=== PATIENT | male | born 1940 | race Caucasian/White ===

== ENCOUNTER 2018-07-04 08:07 | Emergency (ER) | payer MEDICARE, BC ==
[~2018-07-04] VITALS: Ht 172.7 cm; Wt 92.0 kg
[~2018-07-04 08:07] MED LIST: ALBU18HF2 INH; CETI10TA15 PO; FLUT16SP2 BOTHNARES; GUAI600T45 PO; PSEU-259 PO
[2018-07-04 08:14] VITALS: BP 126/79
[2018-07-04] MEDS ORDERED: triamcinolone acetonide 40mg/ml inj IM ONE (08:55)
[2018-07-04] MEDS ORDERED: dexamethasone 4mg tablet PO ONE (08:55)
== END 2018-07-04 09:18 | disposition home or self-care (01) ==
LOC: ER 08:07
DX: R21 Rash and other nonspecific skin eruption (principal); E78.00 Pure hypercholesterolemia, unspecified; I10 Essential (primary) hypertension; G89.29 Other chronic pain; Z98.890 Other specified postprocedural states; Z88.1 Allergy status to other antibiotic agents; Z88.8 Allergy status to other drugs, medicaments and biological substances; Z79.899 Other long term (current) drug therapy
CPT/HCPCS: 96372; 99283; J3301; J8540

== ENCOUNTER 2019-05-14 01:18 | Emergency (ER) | payer MEDICARE, BC ==
[~2019-05-14] VITALS: Ht 175.3 cm; Wt 90.0 kg
[2019-05-14] MEDS ORDERED: PRED20TA PO (01:32)
[2019-05-14] MEDS ORDERED: dexamethasone 4mg tablet PO ONE (01:40)
[2019-05-14] MEDS ORDERED: famotidine 10mg tablet PO ONE (01:40)
[2019-05-14] MEDS ORDERED: famotidine 20mg tablet PO ONE (01:45)
[2019-05-14 01:57] VITALS: BP 154/86
== END 2019-05-14 01:40 | disposition home or self-care (01) ==
LOC: ER 01:19
DX: T78.40XA Allergy, unspecified, initial encounter (principal); R06.02 Shortness of breath; E78.00 Pure hypercholesterolemia, unspecified; I10 Essential (primary) hypertension; E11.9 Type 2 diabetes mellitus without complications; G89.29 Other chronic pain; Z98.890 Other specified postprocedural states; Z88.1 Allergy status to other antibiotic agents; Z79.899 Other long term (current) drug therapy; X58.XXXA Exposure to other specified factors, initial encounter; Y93.89 Activity, other specified; Y92.89 Other specified places as the place of occurrence of the external cause; Y99.8 Other external cause status
CPT/HCPCS: 99283

== ENCOUNTER → 2021-11-29 | Day surgery (SDC) | payer MEDICARE, BC ==
[2021-11-24 08:29] LABS: BASOPHILS # (AUTO) 0.1 X10'3 (0-0.2); BASOPHILS % (AUTO) 1.1 % (0-1); EOSINOPHILS # (AUTO) 0.7 X10'3 (0-0.9); HEMATOCRIT 37.6 % (42.0-52.0); HEMOGLOBIN 12.8 g/dl (14.0-17.9); LYMPHOCYTES # (AUTO) 1.2 X10'3 (1.1-4.8); LYMPHOCYTES % (AUTO) 16.5 % (21-51); MEAN CORPUSCULAR HEMOGLOBIN 33.7 PG (27.0-31.0); MEAN CORPUSCULAR VOLUME 99.1 FL (78-98); MEAN PLATELET VOLUME 7.7 FL (7.4-10.4); MONOCYTES # (AUTO) 0.7 X10'3 (0-0.9); NEUTROPHILS # (AUTO) 4.5 X10'3 (1.8-7.7); NEUTROPHILS % (AUTO) 62.4 % (42-75); PLATELET COUNT 269 X10'3 (140-440); WHITE BLOOD COUNT 7.1 X10'3 (4.5-11.0)
[2021-11-24 08:35] LABS: APTT 26 SECONDS (22-32)
[2021-11-24 08:40] LABS: ALBUMIN 3.3 G/DL (3.4-5.0); ANION GAP 8 (8-16); BLOOD UREA NITROGEN 28 MG/DL (7-18); BUN/CREATININE RATIO 13.4 (5.4-32.0); CHLORIDE 110 MMOL/L (99-107); CHOL/HDL RATIO 2.7 (0.00-4.99); CHOLESTEROL 133 MG/DL (0-200); CREATININE 2.09 MG/DL (0.60-1.10); GLUCOSE 116 MG/DL (70-104); HDL CHOLESTEROL 49 MG/DL (35-60); LDL CHOLESTEROL 66 MG/DL (50-100); SODIUM 144 MMOL/L (135-145); TOTAL CARBON DIOXIDE 26.5 MMOL/L (24-32); TRIGLYCERIDES 27 MG/DL (20-135); eGFR 30 ML/MIN
[~2021-11-29] VITALS: Ht 170.2 cm; Wt 86.1 kg
[2021-11-29] VITALS (9 sets, daily range): BP systolic 124–173; BP diastolic 60–84
[~2021-11-29] MED LIST changes: +ASPI-611 PO; +AZEL137S4 BOTHNARES; +FURO20TA4 PO; +HYDROcodone/acetaminophen 10/325mg tab PO PRN; +HYDROcodone/acetaminophen 5mg/325mg tablet PO PRN; +LIDOcaine 1% 30ml preserv. free vial ONE; +LORazepam 0.5 MG tablet PO PRN; +MONT-40 PO; +SIMV-42 PO; +diphenhydrAMINE 25mg capsule PO PRN; +fentaNYL/PF 50MCG/1 ML 2ML syringe ONE; +heparin 1,000unit/ml 10ml vial 10 ML ONE; +iohexol 350MG/ML 100ml bottle IV ONE; +midazolam 1 mg/ML 2ml injection ONE; +nitroGLYCERIN-Tridil 50MG/D5W 250 ML IV ONE; +normal saline 1,000 ML IV SCH; +normal saline 1000ml 1,000 ML IV SCH; +verapamil 2.5 mg/ml inj IV ONE
--- NOTE | 2021-11-29 19:58 | NUR ---
Assumed care of patient. Procedure site to right wrist stable with vasc band in place. Procedure site to right groin stable with CDI dressing.
[2021-11-30 09:21] LABS: ISTAT Hct MIX 35 %PCV (42-52); ISTAT O2 SATURATION MIX VENOUS 58 % (60-80); ISTAT SOURCE BLNK
[2021-11-30 09:22] LABS: ISTAT Hct MIX 32 %PCV (42-52); ISTAT O2 SATURATION MIX VENOUS 93 % (60-80); ISTAT SOURCE BLNK
== END | disposition home or self-care (01) ==
LOC: SSTAY O 11:59
PROVIDERS: ATTEND Internal Medicine Interventional Cardiology
DX: I08.3 Combined rheumatic disorders of mitral, aortic and tricuspid valves (principal); I27.20 Pulmonary hypertension, unspecified; E11.22 Type 2 diabetes mellitus with diabetic chronic kidney disease; I12.9 Hypertensive chronic kidney disease with stage 1 through stage 4 chronic kidney disease, or unspecified chronic kidney disease; N18.30 Chronic kidney disease, stage 3 unspecified; K21.9 Gastro-esophageal reflux disease without esophagitis; I44.30 Unspecified atrioventricular block; Z79.01 Long term (current) use of anticoagulants; Z79.899 Other long term (current) drug therapy; Z79.82 Long term (current) use of aspirin; Z88.1 Allergy status to other antibiotic agents; Z88.8 Allergy status to other drugs, medicaments and biological substances
CPT/HCPCS: 36415; 80048; 80061; 82803; 85014; 85025; 85610; 85730; 93005; 93456; 99152; 99153; C1751; C1769; C1894; J1644; J2250; J3010; J3490; J7030; Q0163; Q9967; A4620; A5120; A6258; A6402

== ENCOUNTER 2022-02-08 10:01 | Outpatient (CLI) | payer MEDICARE, BC ==
[~2022-02-08 10:01] MED LIST changes: -ALBU18HF2 INH; -CETI10TA15 PO; -FLUT16SP2 BOTHNARES; -HYDROcodone/acetaminophen 10/325mg tab PO PRN; -HYDROcodone/acetaminophen 5mg/325mg tablet PO PRN; -LIDOcaine 1% 30ml preserv. free vial ONE; -LORazepam 0.5 MG tablet PO PRN; -PSEU-259 PO; -diphenhydrAMINE 25mg capsule PO PRN; -fentaNYL/PF 50MCG/1 ML 2ML syringe ONE; -heparin 1,000unit/ml 10ml vial 10 ML ONE; -iohexol 350MG/ML 100ml bottle IV ONE; -midazolam 1 mg/ML 2ml injection ONE; -nitroGLYCERIN-Tridil 50MG/D5W 250 ML IV ONE; -normal saline 1,000 ML IV SCH; -normal saline 1000ml 1,000 ML IV SCH; -verapamil 2.5 mg/ml inj IV ONE
[2022-02-08 11:14] LABS: BASOPHILS % (AUTO) 0.3 % (0-1); EOSINOPHILS % (AUTO) 0.1 % (0-6); HEMATOCRIT 37.6 % (42.0-52.0); HEMOGLOBIN 12.6 g/dl (14.0-17.9); LYMPHOCYTES # (AUTO) 0.7 X10'3 (1.1-4.8); LYMPHOCYTES % (AUTO) 7.4 % (21-51); MEAN CORPUSCULAR HEMOGLOBIN 34.1 PG (27.0-31.0); MEAN CORPUSCULAR HGB CONC 33.4 g/dL (33.0-36.5); MEAN CORPUSCULAR VOLUME 102.2 FL (78-98); MEAN PLATELET VOLUME 7.2 FL (7.4-10.4); MONOCYTES # (AUTO) 0.2 X10'3 (0-0.9); MONOCYTES % (AUTO) 2.5 % (2-12); NEUTROPHILS # (AUTO) 8.7 X10'3 (1.8-7.7); NEUTROPHILS % (AUTO) 89.7 % (42-75); PLATELET COUNT 269 X10'3 (140-440); RED BLOOD COUNT 3.68 X10'6 (4.70-6.10); RED CELL DISTRIBUTION WIDTH 13.9 % (11.5-14.5); WHITE BLOOD COUNT 9.7 X10'3 (4.5-11.0)
[2022-02-08 11:22] LABS: APTT 24 SECONDS (22-32)
[2022-02-08 11:25] LABS: ALANINE AMINOTRANSFERASE 40 U/L (12-78); ALBUMIN 3.6 G/DL (3.4-5.0); ALBUMIN/GLOBULIN RATIO 0.8 (1.1-1.5); ALKALINE PHOSPHATASE 96 IU/L (46-116); ANION GAP 10 (8-16); ASPARTATE AMINO TRANSFERASE 31 U/L (10-37); BILIRUBIN,TOTAL 0.3 MG/DL (0.1-1.0); BLOOD UREA NITROGEN 34 MG/DL (7-18); CALCIUM 8.7 MG/DL (8.5-10.1); CHLORIDE 106 MMOL/L (99-107); CREATININE 2.27 MG/DL (0.60-1.10); GLUCOSE 163 MG/DL (70-104); SODIUM 141 MMOL/L (135-145); TOTAL CARBON DIOXIDE 25.1 MMOL/L (24-32); TOTAL PROTEIN 7.9 G/DL (6.4-8.2); eGFR 28 ML/MIN
[2022-03-09] MEDS ORDERED: APIX2.5T PO (11:12)
[2022-03-09] MEDS ORDERED: GUAI400T92 PO (11:12)
== END 2022-02-08 23:59 | disposition home or self-care (01) ==
LOC: RAD 10:01
PROVIDERS: ATTEND Internal Medicine Cardiovascular Disease
DX: Z01.818 Encounter for other preprocedural examination (principal); I70.0 Atherosclerosis of aorta; R91.8 Other nonspecific abnormal finding of lung field; K76.0 Fatty (change of) liver, not elsewhere classified; N28.1 Cyst of kidney, acquired; K44.9 Diaphragmatic hernia without obstruction or gangrene; K57.30 Diverticulosis of large intestine without perforation or abscess without bleeding; E04.1 Nontoxic single thyroid nodule; N62 Hypertrophy of breast; I25.10 Atherosclerotic heart disease of native coronary artery without angina pectoris; I35.8 Other nonrheumatic aortic valve disorders; J84.10 Pulmonary fibrosis, unspecified; K42.9 Umbilical hernia without obstruction or gangrene; M47.817 Spondylosis without myelopathy or radiculopathy, lumbosacral region; M47.814 Spondylosis without myelopathy or radiculopathy, thoracic region; M46.04 Spinal enthesopathy, thoracic region; I65.29 Occlusion and stenosis of unspecified carotid artery; Z20.822 Contact with and (suspected) exposure to COVID-19; Z87.891 Personal history of nicotine dependence; Z95.0 Presence of cardiac pacemaker; Z79.82 Long term (current) use of aspirin; Z79.899 Other long term (current) drug therapy
CPT/HCPCS: 71046; 71275; 74174; 80053; 85025; 85610; 85730; 87811; 94010; 94727; 94729; J3490; Q9967

== ENCOUNTER 2022-03-16 05:21 | Inpatient (IN) | payer MEDICARE, BC ==
[2022-03-09 12:30] LABS: BASOPHILS # (AUTO) 0.1 X10'3 (0-0.2); BASOPHILS % (AUTO) 0.8 % (0-1); EOSINOPHILS # (AUTO) 0.3 X10'3 (0-0.9); EOSINOPHILS % (AUTO) 4.2 % (0-6); LYMPHOCYTES # (AUTO) 1.5 X10'3 (1.1-4.8); LYMPHOCYTES % (AUTO) 21.6 % (21-51); MEAN CORPUSCULAR HEMOGLOBIN 34.6 PG (27.0-31.0); MEAN CORPUSCULAR HGB CONC 34.2 g/dL (33.0-36.5); MEAN CORPUSCULAR VOLUME 101.1 FL (78-98); MEAN PLATELET VOLUME 7.3 FL (7.4-10.4); MONOCYTES # (AUTO) 0.8 X10'3 (0-0.9); MONOCYTES % (AUTO) 11.6 % (2-12); NEUTROPHILS # (AUTO) 4.2 X10'3 (1.8-7.7); NEUTROPHILS % (AUTO) 61.8 % (42-75); PRE OP HEMOGLOBIN 13.7 g/dL (14.0-17.9); PRE OP PLATELET COUNT 279 X10'3 (140-440); RED BLOOD COUNT 3.96 X10'6 (4.70-6.10); RED CELL DISTRIBUTION WIDTH 13.5 % (11.5-14.5)
[2022-03-09 12:52] LABS: ALBUMIN 3.6 G/DL (3.4-5.0); ALBUMIN/GLOBULIN RATIO 0.9 (1.1-1.5); ALKALINE PHOSPHATASE 96 IU/L (46-116); BLOOD UREA NITROGEN 29 MG/DL (7-18); BUN/CREATININE RATIO 13.9 (5.4-32.0); CHLORIDE 105 MMOL/L (99-107); CREATININE 2.08 MG/DL (0.60-1.10); PRE OP ALT 31 U/L (30-65); PRE OP ANION GAP 9 (8-16); PRE OP AST 29 U/L (10-37); PRE OP BILIRUB, TOTAL 0.3 MG/DL (0.0-1.0); PRE OP GLUCOSE 111 MG/DL (70-104); PRE OP POTASSIUM 3.9 MMOL/L (3.4-5.1); PRE OP SODIUM 142 MMOL/L (135-145); TOTAL CARBON DIOXIDE 28.2 MMOL/L (24-32); TOTAL PROTEIN 7.8 G/DL (6.4-8.2); eGFR 31 ML/MIN
[2022-03-09 12:58] LABS: PRE OP INR 1.1 INR; PRE OP PROTIME 10.9 SECONDS (9.0-12.0)
[~2022-03-16] VITALS: Ht 172.7 cm; Wt 90.9 kg
[2022-03-16] VITALS (20 sets, daily range): BP systolic 129–179; BP diastolic 66–94
[~2022-03-16 05:21] MED LIST changes: +APIX2.5T PO; -ASPI-611 PO; +GUAI400T92 PO; -GUAI600T45 PO; +ringers solution, lacted 1,000 ML IV SCH
[2022-03-16] MEDS ORDERED: aspirin 325mg tablet, delayed-release (Ecotrin) PO ONE (05:30)
[2022-03-16] MEDS ORDERED: nitroPRUSSIDE (NIPRIDE) (200MCG/ML) 100ML Drip IV SCH (05:30)
[2022-03-16] MEDS ORDERED: vancomycin 1,500 MG in NS 300ml IV soln IV ONE (05:30)
[2022-03-16] MEDS ORDERED: phenylephrine inj 50 MG in normal saline 250ml IV solN IV SCH (05:30)
[2022-03-16] MEDS ORDERED: famotidine 20mg tablet PO ONE (05:30)
[2022-03-16] MEDS ORDERED: ondansetron/PF 4mg/2ml inj IV PRN ×3 (05:30→08:15)
[2022-03-16] MEDS ORDERED: ceFAZolin inj. 2,000 MG in dextrose 5%-water 100 ML IV ONE (05:30)
[2022-03-16] MEDS ORDERED: LIDOcaine 1% (10mg/ml) 2ml vial ONE (05:37)
[2022-03-16] MEDS ORDERED: protamine sulfate 10mg/ml inj. ONE (05:50)
[2022-03-16] MEDS ORDERED: diphenhydrAMINE 25mg capsule PO SCH (06:24)
[2022-03-16] MEDS ORDERED: famotidine 20mg tablet PO SCH (06:24)
[2022-03-16] MEDS ORDERED: predniSONE 20 mg tablet PO SCH (06:30)
[2022-03-16] MEDS ORDERED: heparin 1,000 UNITS/NS 500ml 1,500 ML ONE (06:34)
[2022-03-16] MEDS ORDERED: iohexol 350MG/ML 100ml bottle IV ONE (06:34)
[2022-03-16] MEDS ORDERED: LIDOcaine 1%/PF 5ML 10 MG/ML VIAL ONE (06:34)
[2022-03-16] MEDS ORDERED: fentaNYL/PF 50MCG/1 ML 2ML syringe ONE (06:53)
[2022-03-16] MEDS ORDERED: midazolam 1 mg/ML 2ml injection ONE (06:57)
[2022-03-16] MEDS ORDERED: meperidine/PF 25mg/ml syringe IV PRN (07:05)
[2022-03-16] MEDS ORDERED: labetalol 20mg/4ml (5mg/ml) syringe IV PRN ×2 (07:05→08:15)
[2022-03-16] MEDS ORDERED: morphine 2 MG/ML inj. syringe IV PRN (07:05)
[2022-03-16] MEDS ORDERED: hydrALAZINE 20mg/ml inj. IV PRN ×2 (07:05→08:15)
[2022-03-16] MEDS ORDERED: HYDROmorphone/PF 0.2 MG/ML SYRINGE IV PRN ×2 (07:05)
[2022-03-16] MEDS ORDERED: proCHLORperazine 10 MG/2 ml inj IV PRN ×2 (07:05→08:15)
[2022-03-16] MEDS ORDERED: morphine 4 MG/ML inj SYRINge IV PRN (07:05)
[2022-03-16] MEDS ORDERED: acetaminophen 1,000mg/100ml IV 100 ML IV PRN (07:05)
[2022-03-16] MEDS ORDERED: ringers solution, lacted 1,000 ML IV SCH (07:05)
[2022-03-16] MEDS ORDERED: propofol inj 20 ML IV ONE ×3 (07:32)
[2022-03-16] MEDS ORDERED: heparin 1,000unit/ml 10ml vial 10 ML ONE ×2 (07:32→07:46)
[2022-03-16] MEDS ORDERED: azelastine Nasal Spray bottle NS SCH (08:00)
[2022-03-16] MEDS ORDERED: acetaminophen 325mg tablet PO PRN (08:15)
[2022-03-16] MEDS ORDERED: MESSAGE TO PHARMACY PO ONE (08:15)
[2022-03-16] MEDS ORDERED: normal saline 1000ml 1,000 ML IV SCH (08:15)
[2022-03-16] MEDS ORDERED: dextrose 50%-water 50ml dispensing syringe IV PRN ×2 (08:15)
[2022-03-16] MEDS ORDERED: glucagon, human recombinant 1mg kit SUBCUT PRN (08:15)
[2022-03-16] MEDS ORDERED: ALPRAZolam 0.25mg tablet PO PRN (08:15)
[2022-03-16] MEDS ORDERED: docusate sod 100mg capsule PO PRN (08:15)
[2022-03-16] MEDS ORDERED: pantoprazole 40mg Tablet.DR PO PRN (08:15)
[2022-03-16] MEDS ORDERED: insulin Lispro (HumaLOG) vial - multi-dose SQ SCH (08:15)
[2022-03-16] MEDS ORDERED: DEXTROSE 15 GM of carb/4 tabs (each vial/BOTTLE has 4 tablets) PO PRN ×2 (08:15)
[2022-03-16] MEDS ORDERED: diphenhydrAMINE 25mg capsule PO PRN (08:15)
[2022-03-16] MEDS ORDERED: aspirin 81mg tab.chew PO ONE (13:00)
[2022-03-16] MEDS: sod chloride 0.9% 10ml flush syringe IV SCH (16:00)
[2022-03-16] MEDS ORDERED: insulin glargine (Lantus) pen - multi-dose SQ SCH (21:00)
[2022-03-16] MEDS ORDERED: guaiFENesin ER 600mg tablet PO SCH (21:00)
[2022-03-16] MEDS ORDERED: montelukast 10mg tablet PO SCH (21:00)
[2022-03-16] MEDS ORDERED: atorvastatin 10mg tablet PO SCH (21:00)
[2022-03-16] MEDS: vancomycin/NS 1 GM ADD-VANTAGE 250 ML IV SCH (22:13)
[2022-03-17 02:00] VITALS: BP 130/73
[2022-03-17 06:00] VITALS: BP 148/85
[2022-03-17 06:37] LABS: BASOPHILS % (AUTO) 0.1 % (0-1); EOSINOPHILS % (AUTO) 0.1 % (0-6); HEMOGLOBIN 11.6 g/dl (14.0-17.9); LYMPHOCYTES # (AUTO) 1.8 X10'3 (1.1-4.8); MEAN CORPUSCULAR HEMOGLOBIN 34.7 PG (27.0-31.0); MEAN PLATELET VOLUME 7.5 FL (7.4-10.4); MONOCYTES # (AUTO) 1.2 X10'3 (0-0.9); MONOCYTES % (AUTO) 9.5 % (2-12); NEUTROPHILS # (AUTO) 9.5 X10'3 (1.8-7.7); NEUTROPHILS % (AUTO) 76.3 % (42-75); PLATELET COUNT 213 X10'3 (140-440); RED BLOOD COUNT 3.33 X10'6 (4.70-6.10); RED CELL DISTRIBUTION WIDTH 13.5 % (11.5-14.5); WHITE BLOOD COUNT 12.5 X10'3 (4.5-11.0)
[2022-03-17 06:52] LABS: ALANINE AMINOTRANSFERASE 22 U/L (12-78); ALBUMIN/GLOBULIN RATIO 0.9 (1.1-1.5); ALKALINE PHOSPHATASE 78 IU/L (46-116); ANION GAP 6 (8-16); ASPARTATE AMINO TRANSFERASE 19 U/L (10-37); BILIRUBIN,TOTAL 0.4 MG/DL (0.1-1.0); BLOOD UREA NITROGEN 37 MG/DL (7-18); BUN/CREATININE RATIO 17.5 (5.4-32.0); CALCIUM 8.3 MG/DL (8.5-10.1); CHLORIDE 110 MMOL/L (99-107); CREATININE 2.11 MG/DL (0.60-1.10); GLUCOSE 117 MG/DL (70-104); MAGNESIUM 2.6 MG/DL (1.5-2.4); POTASSIUM 4.2 MMOL/L (3.5-5.1); SODIUM 142 MMOL/L (135-145); TOTAL PROTEIN 6.4 G/DL (6.4-8.2); eGFR 30 ML/MIN
[2022-03-17] MEDS: vancomycin/NS 1 GM ADD-VANTAGE 250 ML IV SCH (07:10)
[2022-03-17] MEDS: ceFAZolin 1GM/D5W- ADD-VANTAGE 50 ML IV SCH (08:00)
[2022-03-17] MEDS: sod chloride 0.9% 10ml flush syringe IV SCH ×2 (08:33)
[2022-03-17] MEDS ORDERED: ceFAZolin 1GM/D5W- ADD-VANTAGE 50 ML IV SCH (11:00)
[2022-03-17 12:00] VITALS: BP 142/85
== END 2022-03-17 15:19 | disposition home or self-care (01) | DRG 266 ==
LOC: PAS IN 05:21 → PCU 3S 09:51
PROVIDERS: ADMIT Internal Medicine Cardiovascular Disease; ATTEND Internal Medicine Cardiovascular Disease
PROC: B41D1ZZ Fluoroscopy of Aorta and Bilateral Lower Extremity Arteries using Low Osmolar Contrast (ICD-10-PCS; 2022-03-16)
PROC: 02RF38Z Replacement of Aortic Valve with Zooplastic Tissue, Percutaneous Approach (ICD-10-PCS; principal; 2022-03-16 06:54)
DX: I35.0 Nonrheumatic aortic (valve) stenosis (principal); Z00.6 Encounter for examination for normal comparison and control in clinical research program; I50.33 Acute on chronic diastolic (congestive) heart failure; I13.0 Hypertensive heart and chronic kidney disease with heart failure and stage 1 through stage 4 chronic kidney disease, or unspecified chronic kidney disease; N18.30 Chronic kidney disease, stage 3 unspecified; I48.91 Unspecified atrial fibrillation; Z95.0 Presence of cardiac pacemaker
CPT/HCPCS: 33361; 36415; 71045; 71046; 76937; 80053; 82948; 83036; 83735; 83880; 85025; 85347; 85610; 85730; 86885; 86900; 86901; 86920; 87081; 87811; 93005; 93308; A4618; A6258; A6449; C1756; C1760; C1769; C1894; G0378; J0690; J1644; J1815; J2250; J2370; J2704; J2720; J3010; J3370; J3490; J7040; J7050; J7060; J7120; J7512; Q0163; Q9967

== ENCOUNTER 2023-04-19 09:14 | Emergency (ER) | payer MEDICARE, BC ==
[~2023-04-19] VITALS: Ht 170.2 cm; Wt 79.1 kg
[~2023-04-19 09:14] MED LIST changes: -ringers solution, lacted 1,000 ML IV SCH
[2023-04-19] MEDS ORDERED: acetaminophen 325mg tablet PO ONE ×2 (10:45→12:15)
[2023-04-19] MEDS ORDERED: normal saline 1000ML IV soln IVB ONE (12:15)
[2023-04-19] MEDS ORDERED: ondansetron 4 MG/5 ML oral solution 5ml CUP PO ONE (12:15)
[2023-04-19 12:50] LABS: BASOPHILS % (AUTO) 0.4 % (0-1); EOSINOPHILS % (AUTO) 0.4 % (0-6); HEMATOCRIT 31.2 % (42.0-52.0); HEMOGLOBIN 10.4 g/dl (14.0-17.9); LYMPHOCYTES # (AUTO) 0.5 X10'3 (1.1-4.8); LYMPHOCYTES % (AUTO) 7.4 % (21-51); MEAN CORPUSCULAR HEMOGLOBIN 34.7 PG (27.0-31.0); MEAN CORPUSCULAR HGB CONC 33.4 g/dL (33.0-36.5); MEAN CORPUSCULAR VOLUME 103.7 FL (78-98); MEAN PLATELET VOLUME 7.5 FL (7.4-10.4); MONOCYTES # (AUTO) 0.5 X10'3 (0-0.9); MONOCYTES % (AUTO) 7.4 % (2-12); NEUTROPHILS # (AUTO) 6.1 X10'3 (1.8-7.7); NEUTROPHILS % (AUTO) 84.4 % (42-75); PLATELET COUNT 220 X10'3 (140-440); RED BLOOD COUNT 3.01 X10'6 (4.70-6.10); RED CELL DISTRIBUTION WIDTH 14.3 % (11.5-14.5); WHITE BLOOD COUNT 7.3 X10'3 (4.5-11.0)
[2023-04-19 12:59] VITALS: BP 121/59; PULSE 69; RESP 16; TEMP 98.3; O2SAT 98
[2023-04-19 13:09] LABS: APTT 32 SECONDS (22-32); INR 1.7 INR; PROTHROMBIN TIME 17.8 SECONDS (9.0-12.0)
[2023-04-19 13:39] LABS: BILIRUBIN,URINE NEGATIVE (Neg); CLARITY,URINE CLEAR (Clear); COLOR,URINE YELLOW (Yellow); GLUCOSE, URINE NEGATIVE (Neg); KETONES,URINE NEGATIVE (Neg); LEUKOCYTE ESTERASE ,URINE SMALL (Neg); NITRITES, URINE NEGATIVE (Neg); OCCULT BLOOD,URINE TRACE-INTACT (Neg); PH,URINE 5.5 (4.8-8.0); PROTEIN,URINE NEGATIVE (Neg); UROBILINOGEN,URINE 0.2 E.U/dL (0.2-1.0)
[2023-04-19 13:43] LABS: ALANINE AMINOTRANSFERASE 34 U/L (12-78); ALBUMIN 3.6 G/DL (3.4-5.0); ALBUMIN/GLOBULIN RATIO 0.9 (1.1-1.5); ALKALINE PHOSPHATASE 106 IU/L (46-116); ANION GAP 10 (8-16); ASPARTATE AMINO TRANSFERASE 39 U/L (10-37); BILIRUBIN,TOTAL 0.7 MG/DL (0.1-1.0); BLOOD UREA NITROGEN 35 MG/DL (7-18); BUN/CREATININE RATIO 9.7 (10.0-20.0); CHLORIDE 101 MMOL/L (99-107); CREATININE 3.62 MG/DL (0.60-1.10); GLUCOSE 170 MG/DL (70-104); MAGNESIUM 2.5 MG/DL (1.5-2.4); PHOSPHORUS 3.8 MG/DL (2.3-4.5); POTASSIUM 4.6 MMOL/L (3.5-5.1); PRO BRAIN NATRIURETIC PEPTIDE 7703 PG/ML (0-450); SODIUM 135 MMOL/L (135-145); TOTAL CARBON DIOXIDE 24.5 MMOL/L (24-32); TOTAL PROTEIN 7.6 G/DL (6.4-8.2); eCRCL 14 ML/MIN; eGFR 16 ML/MIN
[2023-04-19 13:47] LABS: UA COLLECTION TYPE NON-SPECIFIED
[2023-04-19 13:49] LABS: BACTERIA,URINE FEW /HPF (Neg); MUCUS STRANDS NONE SEEN /LPF (Neg); RBC,URINE 0-2 /HPF (0-2); SQUAMOUS EPITHELIAL CELL,UR MODERATE /LPF (FEW)
[2023-04-19 13:50] LABS: TRANSITIONAL EPI CELLS,URINE FEW /HPF; WBC CLUMPS,URINE FEW /HPF (NEGATIVE)
[2023-04-19 14:05] LABS: LIPASE 45 U/L (16-77)
[2023-04-19] MEDS ORDERED: CEPH-585 PO (14:22)
== END 2023-04-19 14:27 | disposition home or self-care (01) ==
LOC: ER 09:15
DX: M25.512 Pain in left shoulder (principal); R42 Dizziness and giddiness
CPT/HCPCS: 36415; 70450; 71045; 73030; 80053; 81001; 83690; 83735; 83880; 84100; 84145; 84484; 85025; 85610; 85730; 87088; 93005; 99285; J7030